=== PATIENT | female | born 1975 | race Caucasian/White ===

== ENCOUNTER 2025-04-11 11:13 | Emergency (ER) | payer OTHER, SELFPAY ==
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
--- OUTSIDE RECORDS SUMMARY | 2024-12-22 05:30 | XMS_ITS | Encounter Summary ---
Author Name [facility] Organization [facility] Address [address] [place] [address] Care Team Providers Care Histology Tech Name Role Phone CHEO CHAVIRA Primary Care [...] Marmolejo's Name Patient's Relationship to Policy Marmolejo [facility] Sep 19, 2021 [facility] [id number] [phone] LC [place] PATIENT [facility] Sep 19, 2021 [facility] [id number] LC [place] PATIENT Selected Encounter This section includes the information on record at [place] for the Encounter. Date/Time Encounter Type Encounter Description Reason Provider Source December 22, 2024 09:30 AM OFFICE O/P EST MOD 30 MIN [facility] - IND ICD-10-CM F41.1 Generalized anxiety disorder PUNEET WATSON Encounter Template Text not used by [place] Assessments - Encounter Diagnoses This section includes the primary and secondary diagnoses documented for the Encounter. Date/Time Primary/Secondary Diagnosis Diagnosis Name Provider Source December 25, 2024 08:34 AM PRIMARY Generalized anxiety disorder PUNEET WATSON [facility] December 25, 2024 08:34 AM SECONDARY Major depressive disorder, recurrent, moderate PUNEET WATSON DAYDAY December 25, 2024 08:34 AM SECONDARY Problems in relationship with spouse or partner PUNEET WATSON DAYDAY Plan of Treatment: Future Appointments (+ 6 months) and Future Tests (+/- 45 days) The Plan of Treatment section includes future care activities for the [facility] This section includes future appointments and future orders which are active, pending or scheduled. Future Appointments This section includes appointments that were scheduled to occur 6 months from the date of the Encounter, up to a maximum of 20 appointments. The data comes from all [place] treatment facilities. Appointment Date/Time Appointment Type Appointme nt Facility Name Mar 19, 2025 11:00 AM AMBULATORY - PSYCHIATRY [facility] May 02, 2025 11:00 AM AMBULATORY - PSYCHIATRY [facility] Jun 18, 2025 11:30 AM AMBULATORY - NONE [facility] Active, Pending, and Scheduled Orders This section includes a listing of several types of active, pending, and scheduled orders, including clinic medications orders, diagnostic test orders, procedure orders and consult orders; where the start date of the order is 45 days before the date of the Encounter or 45 days after the date of theEncounter. The data comes from all [facility]. Test Date/Time Test Type Test Details Facility Name Jan 11, 2025 12:00 AM Laboratory - Chemi mabely Order OCCULT BLOOD FIT X1 SCREEN VIAL (FOBT) FECES SP [facility] Lab Results: +/- 30 days of the encounter This section includes the Chemistry and Hematology Lab Results on record with [place] for the patient. Radiology Reports and Pathology Reports are provided separately, in subsequent sections. Lab Results This section contains the Chemistry/Hematology Results that were resulted 30 days before or 30 daysafter the date of the Encounter. Date/Time Source Result Type Result - Unit Interpretation Reference Range Specimen Type Comment December 15, 2024 11:32 AM [facility] VITAMIN D (TOTAL) SERUM Specimen Type: SERUM Comment: VITD One expert panel recommended a target range of 30-40 ng/mL. Ordering Provider: CHEO CHAVIRA Report Released Date/Time: Nov 16, 2024 10:28 AM Reporting Lab: [facility] [id number] ON LICENSE OF [facility] [id number] Performing Lab: [address] [address] VITAMIN D (TOTAL) 47 ng/mL 30-60 December 15, 2024 11:32 AM [facility] CORTISOL SERUM Specimen Type: SERUM Comment: VITD One expert panel recommended a target range of 30-40 ng/mL. CORTREF RANGE: AM draw (3.7-19.4 ug/dL) or PM draw (2.9-17.3 ug/dL) Ordering Provider: CHEO CHAVIRA Report Released Date/Time: Nov 16, 2024 10:28 AM Reporting Lab: [address] [phone] Performing Lab: [address] [phone] CORTISOL 6.9 ug/dL December 15, 2024 11:32 AM [facility] VITAMIN B12 PLASMA Specimen Type: PLASMA Comment: GLUCOSE The ADA recommends a fasting glucose of 99 mg/dL as the GLUCOSE upper limit of normal. TP Per package insert reference range for recumbent is 6.0 to 7.8 TP g/dL. Plasma samples will generally have higher values (about TP 0.2 to 0.4 g/dL higher) due to presence of fibrinogen. TRIG REFERENCE RANGE: BORDERLINE HIGH: 150-199 mg/dL HIGH: 200-499 TRIG mg/dL VERY HIGH: >=500 mg/dL CHOL REF RANGE: BORDERLINE HIGH: 200-239 mg/dL HIGH: >=240 mg/dL HDLC Values >60 are a negative risk factor for heart disease. DLDL REF RANGE: NEAR OR ABOVE OPTIMAL: 100-129 mg/dL BORDERLINE DLDL HIGH: 130-159 mg/dL HIGH: 160-189 mg/dL VERY HIGH: >=190 VITB12 Levels above 300 or 400 pg/mL are rarely associated with VITB12 vitamin B12 deficiency induced hematologic or neurologic VITB12 disease, respectively. Recommended usage in conjunction with VITB12 information obtained from clinical evaluation and other VITB12 testing. Ordering Provider: CHEO CHAVIRA Report Released Date/Time: Nov 16, 2024 10:28 AM Reporting Lab: [address] [phone] Performing Lab: [address] [phone] VITAMIN B12 385 pg/mL 213-816 December 15, 2024 11:32 AM [facility] TSH PLASMA Specimen Type: PLASMA Comment: GLUCOSE The ADA recommends a fasting glucose of 99 mg/dL as the GLUCOSE upper limit of normal. TP Per package insert reference range for recumbent is 6.0 to 7.8 TP g/dL. Plasma samples will generally have higher values (about TP 0.2 to 0.4 g/dL higher) due to presence of fibrinogen. TRIG REFERENCE RANGE: BORDERLINE HIGH: 150-199 mg/dL HIGH: 200-499 TRIG mg/dL VERY HIGH: >=500 mg/dL CHOL REF RANGE: BORDERLINE HIGH: 200-239 mg/dL HIGH: >=240 mg/dL HDLC Values >60 are a negative risk factor for heart disease. DLDL REF RANGE: NEAR OR ABOVE OPTIMAL: 100-129 mg/dL BORDERLINE DLDL HIGH: 130-159 mg/dL HIGH: 160-189 mg/dL VERY HIGH: >=190 VITB12 Levels above 300 or 400 pg/mL are rarely associated with VITB12 vitamin B12 deficiency induced hematologic or neurologic VITB12 disease, respectively. Recommended usage in conjunction with VITB12 information obtained from clinical evaluation and other VITB12 testing. Ordering Provider: CHEO CHAVIRA Report Released Date/Time: Nov 16, 2024 10:28 AM Reporting Lab: [address] [phone] Performing Lab: [address] [address] TSH 0.525 u[IU]/mL 0.350-4.940 December 15, 2024 11:32 AM [facility] COMPREHENSIVE METABOLIC PANEL PLASMA S pecimen Type: PLASMA No comment entered. Ordering Provider: CHEO CHAVIRA Report Released Date/Time: Nov 16, 2024 10:28 AM Reporting Lab: [address] [phone] Performing Lab: [facility] December 15, 2024 11:32 AM [facility] FREE T4 PLASMA Specimen Type: P LASMA Comment: GLUCOSE The ADA recommends a fasting glucose of 99 mg/dL as the GLUCOSE upper limit of normal. TP Per package insert reference range for recumbent is 6.0 to 7.8 TP g/dL. Plasma samples will generally have higher values (about TP 0.2 to 0.4 g/dL higher) due to presence of fibrinogen. TRIG REFERENCE RANGE: BORDERLINE HIGH: 150-199 mg/dL HIGH: 200-499 TRIG mg/dL VERY HIGH: >=500 mg/dL CHOL REF RANGE: BORDERLINE HIGH: 200-239 mg/dL HIGH: >=240 mg/dL HDLC Values >60 are a negative risk factor for heart disease. DLDL REF RANGE: NEAR OR ABOVE OPTIMAL: 100-129 mg/dL BORDERLINE DLDL HIGH: 130-159 mg/dL HIGH: 160-189 mg/dL VERY HIGH: >=190 VITB12 Levels above 300 or 400 pg/mL are rarely associated with VITB12 vitamin B12 deficiency induced hematologic or neurologic VITB12 disease, respectively. Recommended usage in conjunction with VITB12 information obtained from clinical evaluation and other VITB12 testing. Ordering Provider: CHEO CHAVIRA Report Released Date/Time: Nov 16, 2024 10:28 AM Reporting Lab: [address] [phone] Performing Lab: [address] [phone] FREE T4 0.90 ng/dL 0.70-1.48 December 15, 2024 11:32 AM [facility] LIPID PROFILE PLASMA Specimen Type: P LASOSEI Comment: GLUCOSE The ADA recommends a fasting glucose of 99 mg/dL as the GLUCOSE upper limit of normal. TP Per package insert reference range for recumbent is 6.0 to 7.8 TP g/dL. Plasma samples will generally have higher values (about TP 0.2 to 0.4 g/dL higher) due to presence of fibrinogen. TRIG REFERENCE RANGE: BORDERLINE HIGH: 150-199 mg/dL HIGH: 200-499 TRIG mg/dL VERY HIGH: >=500 mg/dL CHOL REF RANGE: BORDERLINE HIGH: 200-239 mg/dL HIGH: >=240 mg/dL HDLC Values >60 are a negative risk factor for heart disease. DLDL REF RANGE: NEAR OR ABOVE OPTIMAL: 100-129 mg/dL BORDERLINE DLDL HIGH: 130-159 mg/dL HIGH: 160-189 mg/dL VERY HIGH: >=190 Ordering Provider: CHEO CHAVIRA Report Released Date/Time: Nov 16, 2024 10:28 AM Reporting Lab: [address] [address] Performing Lab: [place] [phone] CHOLESTEROL 161 mg/dL 0-199 LDL CHOLESTEROL 125 mg/dL H 0-99 HDL CHOLESTEROL 45 mg/dL L >50 TRIGLYCERIDE 44 mg/dL 0-149 December 15, 2024 11:32 AM [facility] HEMOGLOBIN A1C BLOOD Specimen Type: B LOOD Comment: Values obtained from A1C measurements can vary. For typical A1C assays, a reported value of 7.0 could actually be between 6.72 and 7.28 if measured by a reference method. A reported value of 9.0 could actually be between 8.73 and 9.27. Ref: http://www.ngsp.org/CAPdata.asp Ordering Provider: CHEO CHAVIRA Report Released Date/Time: Nov 16, 2024 10:28 AM Reporting Lab: [place] [phone] Performing Lab: [place] [phone] HEMOGLOBIN A1C 5.3 3.6-5.7 December 15, 2024 11:32 AM [facility] T3 TOTAL SERUM Specimen Type: SERUM No comment entered. Ordering Provider: CHEO CHAVIRA Report Released Date/Time: Nov 16, 2024 10:28 AM Reporting Lab: [place] [phone] Performing Lab: [place] [phone] T3 TOTAL 84.8 ng/dL 35.0-193.0 December 15, 2024 11:32 AM [facility] CBC BLOOD Specimen Type: B LOOD Comment: Values obtained from A1C measurements can vary. For typical A1C assays, a reported value of 7.0 could actually be between 6.72 and 7.28 if measured by a reference method. A reported value of 9.0 could actually be between 8.73 and 9.27. Ref: http://www.ngsp.org/CAPdata.asp Scan agrees with automated differential Slide reviewed for eosinophilia Ordering Provider: CHEO CHAVIRA Report Released Date/Time: Nov 16, 2024 10:28 AM Reporting Lab: [address] [phone] Performing Lab: [place] [phone] WBC COUNT 11.5 10*3/uL H 3.6-11.0 RBC COUNT 4.18 10*6/uL L 4.20-5.40 HGB 12.9 g/dL L 13.0-16.0 HCT 38.2 37.0-47.0 MCV 91.4 fL 80.0-96.0 MCH 30.8 pg 27.0-31.0 MCHC 33.7 g/dL 31.5-36.5 PLT 305 10*3/uL 150-400 NUCLEATED RBC/100WBC 0.0 /100{WBCs} RDW 14.2 11.2-15.8 MPV 9.0 fL 7.9-10.8 LYMPHS % 31.0 21.0-51.0 MONOCYTES % 7.6 4.0-8.0 NEUTROPHIL % 39.9 L 54.0-78.0 EOSINOPHIL % 20.7 H 0.0-3.0 BASOPHIL % 0.8 0.0-3.0 ABSOLUTE LYMPHOCYTE COUNT 3.6 10*3/uL 0. 8-5.0 ABSOLUTE NEUTROPHIL COUNT 4.6 10*3/uL 1. 9-8.6 ABSOLUTE BASOPHIL COUNT 0.1 10*3/uL 0.0- 0.3 ABSOLUTE MONOCYTE COUNT 0.9 10*3/uL 0.1- 0.9 ABSOLUTE EOSINOPHIL COUNT 2.4 10*3/uL H 0. 0-0.3 MANUAL SLIDE REVIEW Performed-See comments December 15, 2024 11:32 AM [facility] ANTI-THYROID PEROXIDASE SERUM Specime n Type: SERUM Comment: VITD One expert panel recommended a target range of 30-40 ng/mL. CORTREF RANGE: AM draw (3.7-19.4 ug/dL) or PM draw (2.9-17.3 ug/dL) Ordering Provider: CHEO CHAVIRA Report Released Date/Time: Nov 16, 2024 10:28 AM Reporting Lab: [address] [phone] Performing Lab: [address] [phone] ANTI-THYROID PEROXIDASE <3.0 [IU]/mL 0.0 -5.6 December 15, 2024 11:32 AM [facility] URINALYSIS URINE Specimen Type: URINE No comment entered. Ordering Provider: CHEO CHAVIRA Report Released Date/Time: Nov 16, 2024 10:28 AM Reporting Lab: [address] [phone] Performing Lab: [address] [phone] SPECIFIC GRAVITY 1.022 1.016-1.022 URINE PROTEIN Negative mg/dL URINE PH 5.5 5.0-8.0 WBC/HPF 1 /[HPF] <=4 ANGELI OXALATE CRYSTALS Present H Negative RBC/HPF 1 /[HPF] <=4 SQUAMOUS EPITHELIAL 3 /[HPF] <=4 NITRITE, URINE Negative Negative URINE MUCUS Present H Negative URINE BLOOD Negative mg/dL <0.05 URINE COLOR Light-Yellow URINE GLUCOSE Negative mg/dL URINE BACTERIA Rare Negative ESTERASE(WBC) Negative URINE CLARITY Clear Clear URINE BILIRUBIN Negative mg/dL UROBILINOGEN Negative mg/dL URINE KETONES Negative mg/dL December 15, 2024 11:32 AM [facility] FOLATE SERUM Specimen Type: SERUM No comment entered. Ordering Provider: CHEO CHAVIRA Report Released Date/Time: Nov 16, 2024 10:28 AM Reporting Lab: [address] [phone] Performing Lab: [address] [phone] FOLATE 14.1 ng/mL 7.0-31.4 Social History: Smoking Status (Most current) and Tobacco Use (All prior to encounter date) This section includes the most current, and the historical, smoking and tobacco- related health factors from the [place] facility where the Encounter took place. Current Smoking Status This section includes the most current smoking, or tobacco-related health factor, from the [place] facility where the Encounter took place. Date/Time Current Smoking Status Comment Lulu mejias December 22, 2024 09:30 AM VA-TOBACCO USE EVERY DAY CIGARET [facility] Tobacco Use History This section includes a history of the smoking, or tobacco-related health factors, that were collected on or before the date of the Encounter. The data comes from the [place] facility where the Encounter took place. 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 NO [facility] Aug 06, 2023 02:00 PM VA-TOBACCO USE MED NO [facility] Aug 06, 2023 02:00 PM VA-TOBACCO USER SOME DAYS [facility] Aug 20, 2022 02:00 PM VA-TOBACCO DOESNT USE WI 30 MIN WAKEUP [facility] Aug 20, 2022 02:00 PM VA-TOBACCO USE 30 YEARS OR MORE [facility] Aug 20, 2022 02:00 PM VA-TOBACCO USE ADVICE [facility] Aug 20, 2022 02:00 PM VA-TOBACCO USE MIXER BLENDER NO [facility] Aug 20, 2022 02:00 PM VA-TOBACCO USE MED NO [facility] Aug 20, 2022 02:00 PM VA-TOBACCO USER EVERY DAY [facility] Encounter Notes: All associated encounter notes This section contains the clinical notes associated to the Encounter. Date/Time Encounter Note(s) Provider Source December 22, 2024 09:31 AM PSYCHIATRY NOTE: LOCAL TITLE: [facility] PSYCHIATRY NOTE (T) STANDARD TITLE: PSYCHIATRY NOTE DATE OF NOTE: DECEMBER 22, 2024@09:31 ENTRY DATE: DECEMBER 22, 2024@09:31:27 AUTHOR: PUNEET WATSON COSIGNER: URGENCY: STATUS: COMPLETED PSYCHIATRIC PROGRESS NOTE Time in: 0930 am Time out: 1000 am Total time: 30 minutes Therapy time: 16 minutes Date Treatment Plan is due: December Treatment Plan Goal: lower depression and anxiety CC: medication follow up HPI: Patient is a of on . Patients has bladder cancer and this is stressful . She reports they can't afford for him to be off of work because they will lose their home. 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 She reports her anxiety has been through roof along with depression . She states I get brain zaps and headaches at work. She reports she hasn't missed any doses of her Duloxetine which can cause brain zaps if not taken correctly . She reports and gets defensive regarding selling her home which is a 500,000 dollar home. 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 Sleep most nights probably 6 hours trees to get 7 to 8 hours. She reports her doesn't like her sleeping. 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 She continues to be afraid of him when he gets mad. She reports it took everything in her to come here today. She reports somedays will pretend she is going to work but will go to park . 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 SUBSTANCE USE HX: Nicotine : smoking 6 daily Alcohol : social Cannabis : gummies ALLERGIES: ALLERGIES/ADVERSE REACTIONS No Known Allergies Active Outpatient Medications (including Supplies): Active Outpatient Medications Status ===== 1) BUPROPION HCL 150MG 24HR SA TAB TAKE ONE TABLET BY ACTIVE MOUTH EVERY MORNING 2) DULOXETINE HCL 30MG EC CAP TAKE THREE CAPSULES BY ACTIVE MOUTH EVERY DAY FOR MAJOR DEPRESSIVE DISORDER 3) LAMOTRIGINE 100MG TAB TAKE ONE TABLET BY MOUTH EVERY ACTIVE DAY Active Non-VA Medications Status ===== 1) Non-VA DIPHENHYDRAMINE HCL 25MG CAP 25MG MOUTH TWICE ACTIVE A DAY NEEDED 2) Non-VA IBUPROFEN 800MG TAB 800MG MOUTH THREE TIMES A ACTIVE DAY NEEDED 3) Non-VA LAMOTRIGINE (LAMICTAL) 100MG TAB 100MG MOUTH ACTIVE EVERY DAY 4) Non-VA VITAMIN B COMPLEX CAP 1 CAPSULE MOUTH EVERY ACTIVE DAY 5) Non-VA VITAMIN B COMPLEX WITH C 1 CAP/TAB MOUTH EVERY ACTIVE DAY 8 Total Medications LABS: [facility] - Chem & Hematology (max 6 months) ---- Collection DT Specimen Test Name Result Units Ref Range 12/15/2024 11:32 URINE URINE PH 5.5 5.0 - 8.0 URINE COLOR Light-Yellow Ref: [none] URINE CLARITY Clear Ref: Clear SPECIFIC GRAVITY 1.022 1.016 - 1.022 URINE PROTEIN Negative mg/dL Negative - 29 URINE GLUCOSE Negative mg/dL Negative - 69 URINE KETONES Negative mg/dL <=9 - 9 URINE BILIRUBIN Negative mg/dL <=0.4 - 0.4 UROBILINOGEN Negative mg/dL <=1 - 1 URINE BLOOD Negative mg/dL Ref: <= 0.05 ESTERASE(WBC) Negative Isabella/uL Negative - 74 NITRITE, URINE Negative Ref: Negative RBC/HPF 1 /HPF Ref: <=4 WBC/HPF 1 /HPF Ref: <=4 SQ.EPTH 3 /HPF Ref: <=4 URINE BACTERIA Rare graded/HPFRef: Negative URINE MUCUS Present H Ref: Negative CA++ OX Present H Ref: Negative 12/15/2024 11:27 BLOOD HEMOGLOBIN A1C 5.3 % 3.6 - 5.7 WBC COUNT 11.5 H K/cmm 3.6 - 11.0 RBC COUNT 4.18 L M/cmm 4.20 - 5.40 HGB 12.9 L g/dL 13.0 - 16.0 HCT 38.2 % 37.0 - 47.0 MCV 91.4 fL 80.0 - 96.0 MCH 30.8 pg 27.0 - 31.0 MCHC 33.7 g/dL 31.5 - 36.5 RDW 14.2 % 11.2 - 15.8 PLT 305 K/cmm 150 - 400 MPV 9.0 fL 7.9 - 10.8 NEUTROPHIL % 39.9 L % 54.0 - 78.0 LYMPHS % 31.0 % 21.0 - 51.0 MONOCYTES % 7.6 % 4.0 - 8.0 EOSINOPHIL % 20.7 H % 0.0 - 3.0 BASOPHIL % 0.8 % 0.0 - 3.0 NEUTRO# 4.6 K/cmm 1.9 - 8.6 LY # 3.6 K/cmm 0.8 - 5.0 MONO # 0.9 K/cmm 0.1 - 0.9 EOSINO# 2.4 H K/cmm 0.0 - 0.3 BASO # 0.1 K/cmm 0.0 - 0.3 NRBC 0.0 /100 WBC None Established - None Established Slide Review (manPerformed-See comments Comment: Values obtained from A1C measurements can vary. For typical A1C Comment: assays, a reported value of 7.0 could actually be between 6.72 and Comment: 7.28 if measured by a reference method. A reported value of 9.0 Comment: could actually be between 8.73 and 9.27. Ref: Comment: http://www.ngsp.org/CAPdata.asp Comment: Scan agrees with automated differential Comment: Slide reviewed for eosinophilia 12/15/2024 11:27 PLASMA GLUCOSE 82 mg/dL 74 - 99 SODIUM 142 mmol/L 134 - 144 POTASSIUM 3.8 mmol/L 3.5 - 5.1 CHLORIDE 110 mmol/L 99 - 112 CO2 21 L mmol/L 22 - 30 BUN 12.6 mg/dL 9.8 - 20.1 CREATININE 0.7 mg/dL 0.6 - 1.1 CALCIUM 9.0 mg/dL 8.6 - 10.3 EGFR (CALCULATED) 105 mL/min/1.73m2 BSA ANION GAP 15 mmol/L 10 - 20 AST/SGOT 23 U/L 10 - 40 ALT/SGPT 18 U/L 0 - 55 ALKPHOS 70 U/L 40 - 150 BILIRUBIN, TOTAL 0.4 mg/dL 0.2 - 1.2 PROTEIN, TOTAL 7.0 g/dL 6.4 - 8.3 ALBUMIN 4.1 g/dL 3.5 - 4.8 CHOLESTEROL 161 mg/dL 0 - 199 LDL CHOLESTEROL 125 H mg/dL 0 - 99 HDL CHOLESTEROL 45 L mg/dL Ref: >= 50 TRIGLYCERIDE 44 mg/dL 0 - 149 VITAMIN B12 385 pg/mL 213 - 816 FREE T4 0.90 ng/dL 0.70 - 1.48 TSH 0.525 uIU/mL 0.350 - 4.940 Comment: GLUCOSE The ADA recommends a fasting glucose of 99 mg/dL as the Comment: GLUCOSE upper limit of normal. Comment: TP Per package insert reference range for recumbent is 6.0 to 7.8 Comment: TP g/dL. Plasma samples will generally have higher values (about Comment: TP 0.2 to 0.4 g/dL higher) due to presence of fibrinogen. Comment: TRIG REFERENCE RANGE: BORDERLINE HIGH: 150-199 mg/dL HIGH: 200-499 Comment: TRIG mg/dL VERY HIGH: >=500 mg/dL Comment: CHOL REF RANGE: BORDERLINE HIGH: 200-239 mg/dL HIGH: >=240 mg/dL Comment: HDLC Values >60 are a negative risk factor for heart disease. Comment: DLDL REF RANGE: NEAR OR ABOVE OPTIMAL: 100-129 mg/dL BORDERLINE Comment: DLDL HIGH: 130-159 mg/dL HIGH: 160-189 mg/dL VERY HIGH: >=190 Comment: VITB12 Levels above 300 or 400 pg/mL are rarely associated with Comment: VITB12 vitamin B12 deficiency induced hematologic or neurologic Comment: VITB12 disease, respectively. Recommended usage in conjunction with Comment: VITB12 information obtained from clinical evaluation and other Comment: VITB12 testing. 12/15/2024 11:27 SERUM FOLATE 14.1 ng/mL 7.0 - 31.4 12/15/2024 11:27 SERUM T3 TOTAL 84.8 ng/dL 35.0 - 193.0 VITAMIN D (TOTAL) 47 ng/mL 30 - 60 THYROID PEROX <3.0 IU/mL 0.0 - 5.6 CORTISOL 6.9 ug/dL Comment: VITD One expert panel recommended a target range of 30-40 ng/mL. Comment: CORTREF RANGE: AM draw (3.7-19.4 ug/dL) or PM draw (2.9-17.3 ug/dL) CY - Cytopathology (max 6 months) No data available EM - Electron Microscopy (max 6 months) ------ No data available HANNA[facility] - Microbiology (max 6 months) No data available SP - Surgical Pathology (max 6 months) ----- No data available REVIEW OF SYSTEMS: Muscle strength and Tone: : denies Gait and Station: : denies falls PHYSICAL EXAM: Vitals: Measurement DT TEMP PULSE RESP BP HEIGHT F(C) IN(CM) 12/22/2024 09:09 T: 96.4 F [35.8 C] (12/22/2024 08:58) P: 101 (12/22/2024 08:58) R: 16 (12/22/2024 08:58) BP: 135/85 (12/22/2024 08:58) W: 154 lb. [69.85 kg] (12/22/2024 08:58) BMI: 24.2 Measurement DT WEIGHT PAIN LB(KG)[BMI] 12/22/2024 09:09 5 MENTAL STATUS EXAMINATION: Level of Consciousness: Alert and Oriented to 4 Behavior: Cooperative - Eye Contact: Good Grooming & Hygiene: Good - Dress: Kempt Psychomotor Activity: Restless Speech: Normal rate, volume and prosody Cognition: Grossly intact Thought Process: Coherent and goal directed Thought Content: Delusions: Absent Hallucinations: Absent Suicidal Ideation: Denied. - Intent to : Absent Homicidal Ideation: Denied Mood: Moderately anxious Affect: Blunted Insight: Good - Judgment: Good SELF-MEDICATION ASSESSMENT: Current medication regime reviewed with Client. Client/caregiver was able to verbalize names of medications, dosage, indications, common side effects and proper administration. Client/caregiver knowledgeable regarding obtaining refills, security and proper storage. Client/caregiver assessed to be appropriate to self-medicate. Patient was educated on condition, diagnosis, treatment plan, options for treatment, side effects, tardive dyskinesia, metabolic effects, addictive potential, risk/benefit ratio and use off-label medications. RISK ASSESSMENT Does patient have firearms at home? Yes Patient assessed for other lethal means? Yes Suicidal risk assessment completed: Yes Prior suicide attempts: thoughts in passes The risk for harming self is considered: Acute - Low Chronic - Low Risk factors: Access to lethal means Financial problems Legal problems Medical conditions and health-related problems Psychological conditions Protective factors: Supportive and caring family and friends Connectedness to community, school, family, friends [place] skills (such as problem-solving, conflict resolution, anger management, impulse control, etc.) Access to appropriate medical and mental health care Access to immediate and ongoing support and care Violence assessment completed: Yes Prior history of violence: No The risk of violence towards others is considered: Low PSYCHOTHERAPY NOTE Therapy provided: supportive Issues discussed: father passing, husbands anger Goals of therapy: active listening support Treatment plan: continue plan of care MEDICATION MANAGEMENT TREATMENT PLAN DIAGNOSIS: depression , anxiety GOALS OF THERAPY: lower depression and anxiety METHOD OF THERAPY/INTERVENTIONS: Will continue to assess adherence and efficacy of medications Will continue to monitor symptoms and reassess at the next apt PROGRESS TOWARDS GOAL: Patient is compliant with medication - patient reports symptoms continue to be adequately controlled TREATMENT PLAN UPDATED: Date: December Treatment Plan has been discussed with patient/caregiver. IMPRESSION/FORMULATION: continues with depression , anxiety . Her father recently . diagnosed with cancer and declined treatment due to financially they can't afford him to not work. [place] is 100% [place] but has to work due to they are not making making and could lose everything. She denies suicidal and homicidal thoughts or plans . DIAGNOSIS/PLAN: 1. Duloxetine 90 mg started by neuro for pain management will monitor liver enzymes 2. Continue psychotherapy 3. Wellbutrin 100 mg BID Does patient have a diagnosis or history of opioid use disorder or stimulant use disorder? No RTC: 2 months Patient was provided with the [facility] Crisis Line - Dial [phone], press #1 . Instructed to call 911 or to go to the nearest ER if suicidal ideation occurs. Call clinic with any questions, concerns or in crisis. Follow up with PCP for medical issues. Medication education and counseling for new medications added today was provided to the patient/caregiver based on the individual's needs. This included why the medication was prescribed, how it should be taken and for how long, what to expect from it and what happens if not taken as prescribed. The patient/caregiver was also informed about risks and potential adverse effects of this medication and agreed to medication trial. I certify that the patient/caregiver understood my education and instructions. MEDICATION RECONCILIATION MEDICATION RECONCILIATION REPORT reviewed and discussed with patient. [place] prescription medications: Patient verifies that they are in receipt of a complete and accurate list of medications. Prescription medications from another source: Patient verifies that they are in receipt of a complete and accurate list of medications. Over the counter medications, vitamins, herbals, and nutritional supplements: Patient verifies that they are in receipt of a complete and accurate list of medications. Reviewed current medications with the patient and gave them an updated list. /bridgett/ PUNEET WATSON CLINICAL NURSE SPECIALIST Signed: 12/25/2024 08:35 PUNEET WATSON CBSWETHA December 22, 2024 09:07 AM PRIMARY CARE NURSI JOJO NOTE: LOCAL TITLE: OUTPATIENT NURSING INTAKE NOTE (T) STANDARD TITLE: PRIMARY CARE NURSING NOTE DATE OF NOTE: DECEMBER 22, 2024@09:07 ENTRY DATE: DECEMBER 22, 2024@09:07:16 AUTHOR: CARLOS MOY COSIGNER: URGENCY: STATUS: COMPLETED OUTPATIENT NURSING INTAKE NOTE (T) Has ADDENDA Hemoglobin A1C Results: Collection DT Specimen Test Name Result Units Ref Range 12/15/2024 11:27 BLOOD HEMOGLOBIN A1C 5.3 % 3.6 - 5.7 Comment: Values obtained from A1C measurements can vary. For typical A1C Comment: assays, a reported value of 7.0 could actually be between 6.72 and Comment: 7.28 if measured by a reference method. A reported value of 9.0 Comment: could actually be between 8.73 and 9.27. Ref: Comment: http://[email or web address] Comment: Scan agrees with automated differential Comment: Slide reviewed for eosinophilia Review Allergies Allergies reviewed and updated per protocol. ALLERGIES/ADVERSE REACTIONS No Known Allergies Have you fallen in the last 30 days? NO MEDICATION LIST REVIEW REPORT Patient states no change in documented OTC/Herbals at this visit. 1. Has the patient been feeling sad or distressed? Yes. Name of PCP notified for follow-up/disposition: Puneet Watson 2. Has the patient been having personal or family problems? Yes. Name of PCP notified for follow-up/disposition: Puneet Watson 3. Has the patient been experiencing worry and/or stress? Yes. Name of PCP notified for follow-up/disposition: Puneet Watson 4. Has the patient been having problems with drugs and/or alcohol? No 5. [place] Crisis Line pocket card was provided to patient. No/patient declined [facility] not documented this visit. Clinical Reminders Activity Advance Directive Education Screen: Patient received information regarding Advance Directives: Yes - Patient has been given information/education regarding Advance Directives. Patient advised to follow up with Social Work Service. Alcohol Use Screen (AUDIT-C): Alcohol Screen: SCREEN FOR ALCOHOL (AUDIT-C) An alcohol screening test (AUDIT-C) was negative (score=1). 1. How often did you have a drink containing alcohol in the past year? Consider a drink to be a 12 ounce can or bottle of regular beer, 8 ounces of malt liquor, a 5 ounce glass of table wine, or a 1.5 ounce shot of liquor (like scotch, gin, or vodka). Monthly or less 2. How many drinks containing alcohol did you have on a typical day when you were drinking in the past year? One or two drinks 3. How often did you have 4 or more drinks on one occasion in the past year? Never COVID-19 Immunization: Homelessness/Food Insecurity Screen: In the past 2 months, have you been living in stable housing that you own, rent, or stay in as part of a household? Yes - Living in stable housing. Are you worried or concerned that in the next 2 months you may NOT have stable housing that you own, rent, or stay in as part of a household? Yes - Worried about housing near future Where have you lived for MOST of the past 2 months? Apartment/House/Room - no government subsidy Would you like to be REFERRED to talk more about your housing situation? declines referral to Social Work at this time - Given information for future reference. What's the best way to reach you? How to reach: phone The [place] reports the following: Within the past 12 months, you worried whether your food would run out before you got money to buy more. Never true Within the past 12 months, the food you bought just didn't last and you didn't have money to get more. Never true Pain, Brief Evaluation: Type of pain: Ongoing Location: Low Back Intensity: Currently: 5 Patient Education Documentation: LEARNING NEEDS ASSESSMENT: The patient/family/significant other reports no changes in learning needs. Suicide Screen: C-SSRS Screening [place] Suicide Severity Rating Scale (C-SSRS) screener 1. Over the past month, have you wished you were or wished you could go to sleep and not wake up? No 2. Over the past month, have you had any actual thoughts of killing yourself? No 3. Over the past month, have you been thinking about how you might do this? Response not required due to responses to other questions. 4. Over the past month, have you had these thoughts and had some intention of acting on them? Response not required due to responses to other questions. 5. Over the past month, have you started to work out or worked out the details of how to kill yourself? Response not required due to responses to other questions. 6. If yes, at any time in the past month did you intend to carry out this plan? Response not required due to responses to other questions. 7. In your lifetime, have you ever done anything, started to do anything, or prepared to do anything to end your life (for example, collected pills, obtained a gun, gave away valuables, went to the roof but didn't jump)? No 8. If YES, was this within the past 3 months? Response not required due to responses to other questions. /bridgett/ CARLOS MOY LICENSED PRACTICAL NURSE Signed: 12/22/2024 09:10 12/22/2024 ADDENDUM STATUS: COMPLETED Clinical Reminders Activity Tobacco Use Screening: The patient smokes cigarettes every day. The patient has never used other types of tobacco. /bridgett/ CARLOS MOY LICENSED PRACTICAL NURSE Signed: 12/22/2024 09:11 CARLOS MOY [facility]
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
--- OUTSIDE RECORDS SUMMARY | 2025-02-16 11:50 | XMS_ITS ---
Author Name [facility] [place] Organization [facility] [place] Address [address] [place] [address] Care Team Providers Care Arcade Technician Name Role Phone CHEO CHAVIRA Primary Care [...] Marmolejo's Name Patient's Relationship to Policy Marmolejo [facility] Sep 19, 2021 [facility] [id number] [phone] LC [place] PATIENT [facility] Sep 19, 2021 [facility] [id number] LC [place] PATIENT Selected Encounter This section includes the information on record at [place] for the Encounter. Date/Time Encounter Type Encounter Description Reason Provider Source Feb 16, 2025 03:50 PM [facility] DIG ASSMT&MGMT 5-10 CLINICAL PHARMACY ICD-10-CM L20.9 Atopic dermatitis, unspecified JANAE URRUTIA Encounter Template Text not used by [place] Assessments - Encounter Diagnoses This section includes the primary and secondary diagnoses documented for the Encounter. Date/Time Primary/Secondary Diagnosis Diagnosis Name Provider Source Feb 16, 2025 04:00 PM PRIMARY Atopic dermatitis, unspecified JANAE URRUTIA [facility] Plan of Treatment: Future Appointments (+ 6 months) and Future Tests (+/- 45 days) The Plan of Treatment section includes future care activities for the patient from all [place] [facility] This section includes future appointments and future orders which are active, pending or scheduled. Future Appointments This section includes appointments that were scheduled to occur 6 months from the date of the Encounter, up to a maximum of 20 appointments. The data comes from all [facility]. Appointment Date/Time Appointment Type Appointme nt Facility Name Mar 19, 2025 11:00 AM AMBULATORY - PS[facility]CHIATRY [facility] May 02, 2025 11:00 AM AMBULATORY - PSYCHIATRY [facility] Jun 18, 2025 11:30 AM AMBULATORY - NONE [facility] Jun 25, 2025 10:30 AM AMBULATORY - NONE [facility] Jul 18, 2025 08:30 AM AMBULATORY NONE [facility] Active, Pending, and Scheduled Orders This section includes a listing of several types of active, pending, and scheduled orders, including clinic medications orders, diagnostic test orders, procedure orders and consult orders; where the start date of the order is 45 days before the date of the Encounter or 45 days after the date of theEncounter. The data comes from all [facility]. Test Date/Time Test Type Test Details Facility Name Jan 11, 2025 12:00 AM Laboratory - Chemi stry Order OCCULT BLOOD FIT X1 SCREEN VIAL (FOBT) FECES SP [facility] Mar 20, 2025 10:42 AM Consult Order MH BHIP WI THIN TEAM S [id number] OUTPT Cons [facility] [employer] [facility] Mar 20, 2025 10:43 AM Consult Order W OCCUPATI ONAL THERAPY MENTAL HEALTH OUTPT Cons [employer] [facility] Encounter Notes: All associated encounter notes This section contains the clinical notes associated to the Encounter. Date/Time Encounter Note(s) Provider Source Feb 22, 2025 02:28 PM ADDENDUM: LOCAL TITLE: Addendum STANDARD TITLE: ADDENDUM DATE OF NOTE: FEB 22, 2025@14:28:36 ENTRY DATE: FEB 22, 2025@14:28:37 AUTHOR: JANAE URRUTIA EXP COSIGNER: URGENCY: STATUS: COMPLETED Thanks for the clarification on indication. Please review and alert reviewer if pt. meets criteria below and supply with past use of meds to support request. If pt. has only trialed topical steroids, would need to trial calcineurin inhibitor as well unless not medically advisable. Criteria for use for roflumilast cream or foam includes a trial of 2+ med classes each for at least 1 month. It is noted pt. has used topical steroid but no additional information available. Please review dermatology notes and enter updated consult with more information if pt. does indeed meet this criteria. (For atopic dermaitits the 2 drug classes to consider are topical corticosteroids and topical calcineurin inhibitors. /es/ JANAE URRUTIA CLINICAL MEDICAID PLAN COMPLIANCE DIRECTOR Signed: 02/22/2025 14:30 Receipt Acknowledged By: 03/02/2025 08:44 /es/ CHEO CHAVIRA NURSE PRACTITIONER --- Original Document --- 02/16/25 PRIOR AUTHORIZATION DRUG REQUEST CONSULT NOTE (C): 5. Denied, additional info requested The medical record has been reviewed with regard to this prior authorization drug request. Medication requested: Roflumilast 0.15% cream Medication indication: Psoriasis Medical history relevant to this request: Pt. is a 49 yo following with local net mvc developer who prescribed roflumilast cream 0.15% to hands. Pt. is not eligible for this med via local net mvc developer so PCP is requesting it. This med is available in 2 strengths, 0.15% and 0.3%. The 0.15% is for atopic dermatitis and the 0.3% is for psoriasis and seborrheic dermatitis. This consult indicates it is for psoriais. Would ask that this be clarified. But for either strength and indication, pt. doesn't meet criteria with the information provided. Criteria for use for roflumilast cream or foam includes a trial of 2+ med classes each for at least 1 month. It is noted pt. has used topical steroid but no additional information available. Please review dermatology notes and enter updated consult with more information if pt. does indeed meet this criteria. (For atopic dermaitits the 2 drug classes to consider are topical corticosteroids and topical calcineurin inhibitors. The request does not meet criteria - Compelling evidence for the requested indication is lacking Time spent on encounter = 5 minutes /bridgett/ JANAE URRUTIA CLINICAL MEDICAID PLAN COMPLIANCE DIRECTOR Signed: 02/16/2025 16:00 02/22/2025 ADDENDUM STATUS: COMPLETED Clinical notes received, Zoryve is for dyshidrotic eczema of right hand /es/ CHEO CHAVIRA NURSE PRACTITIONER Signed: 02/22/2025 11:10 Receipt Acknowledged By: 02/22/2025 14:28 /bridgett/ JANAE URRUTIA CLINICAL MEDICAID PLAN COMPLIANCE DIRECTOR JANAE URRUTIA [facility] Feb 22, 2025 11:09 AM ADDENDUM: LOCAL TITLE: Addendum STANDARD TITLE: ADDENDUM DATE OF NOTE: FEB 22, 2025@11:09:10 ENTRY DATE: FEB 22, 2025@11:09:11 AUTHOR: CHEO CHAVIRA EXP COSIGNER: URGENCY: STATUS: COMPLETED Clinical notes received, Zoryve is for dyshidrotic eczema of right hand /es/ CHEO CHAVIRA NURSE PRACTITIONER Signed: 02/22/2025 11:10 Receipt Acknowledged By: 02/22/2025 14:28 /bridgett/ JANAE URRUTIA CLINICAL MEDICAID PLAN COMPLIANCE DIRECTOR --- Original Document --- 02/16/25 PRIOR AUTHORIZATION DRUG REQUEST CONSULT NOTE (C): 5. Denied, additional info requested The medical record has been reviewed with regard to this prior authorization drug request. Medication requested: Roflumilast 0.15% cream Medication indication: Psoriasis Medical history relevant to this request: Pt. is a 49 yo following with local net mvc developer who prescribed roflumilast cream 0.15% to hands. Pt. is not eligible for this med via local net mvc developer so PCP is requesting it. This med is available in 2 strengths, 0.15% and 0.3%. The 0.15% is for atopic dermatitis and the 0.3% is for psoriasis and seborrheic dermatitis. This consult indicates it is for psoriais. Would ask that this be clarified. But for either strength and indication, pt. doesn't meet criteria with the information provided. Criteria for use for roflumilast cream or foam includes a trial of 2+ med classes each for at least 1 month. It is noted pt. has used topical steroid but no additional information available. Please review dermatology notes and enter updated consult with more information if pt. does indeed meet this criteria. (For atopic dermaitits the 2 drug classes to consider are topical corticosteroids and topical calcineurin inhibitors. The request does not meet criteria - Compelling evidence for the requested indication is lacking Time spent on encounter = 5 minutes /bridgett/ JANAE URRUTIA CLINICAL MEDICAID PLAN COMPLIANCE DIRECTOR Signed: 02/16/2025 16:00 CHEO CHAVIRA [facility] Feb 16, 2025 03:50 PM PHARMACY CONSULT: LOCAL TITLE: PRIOR AUTHORIZATION DRUG REQUEST CONSULT NOTE (C) STANDARD TITLE: PHARMACY CONSULT DATE OF NOTE: FEB 16, 2025@15:50 ENTRY DATE: FEB 16, 2025@15:50:28 AUTHOR: JANAE URRUTIA EXP COSIGNER: URGENCY: STATUS: COMPLETED PRIOR AUTHORIZATION DRUG REQUEST CONSULT NOTE (C) Has ADDENDA 5. Denied, additional info requested The medical record has been reviewed with regard to this prior authorization drug request. Medication requested: Roflumilast 0.15% cream Medication indication: Psoriasis Medical history relevant to this request: Pt. is a 49 yo following with local net mvc developer who prescribed roflumilast cream 0.15% to hands. Pt. is not eligible for this med via local net mvc developer so PCP is requesting it. This med is available in 2 strengths, 0.15% and 0.3%. The 0.15% is for atopic dermatitis and the 0.3% is for psoriasis and seborrheic dermatitis. This consult indicates it is for psoriais. Would ask that this be clarified. But for either strength and indication, pt. doesn't meet criteria with the information provided. Criteria for use for roflumilast cream or foam includes a trial of 2+ med classes each for at least 1 month. It is noted pt. has used topical steroid but no additional information available. Please review dermatology notes and enter updated consult with more information if pt. does indeed meet this criteria. (For atopic dermaitits the 2 drug classes to consider are topical corticosteroids and topical calcineurin inhibitors. The request does not meet criteria - Compelling evidence for the requested indication is lacking Time spent on encounter = 5 minutes /linda URRUTIA CLINICAL MEDICAID PLAN COMPLIANCE DIRECTOR Signed: 02/16/2025 16:00 02/22/2025 ADDENDUM STATUS: COMPLETED Clinical notes received, Zoryve is for dyshidrotic eczema of right hand /bridgett/ CHEO CHAVIRA NURSE PRACTITIONER Signed: 02/22/2025 11:10 Receipt Acknowledged By: 02/22/2025 14:28 /bridgett/ JANAE URRUTIA CLINICAL MEDICAID PLAN COMPLIANCE DIRECTOR 02/22/2025 ADDENDUM STATUS: COMPLETED Thanks for the clarification on indication. Please review and alert reviewer if pt. meets criteria below and supply with past use of meds to support request. If pt. has only trialed topical steroids, would need to trial calcineurin inhibitor as well unless not medically advisable. Criteria for use for roflumilast cream or foam includes a trial of 2+ med classes each for at least 1 month. It is noted pt. has used topical steroid but no additional information available. Please review dermatology notes and enter updated consult with more information if pt. does indeed meet this criteria. (For atopic dermaitits the 2 drug classes to consider are topical corticosteroids and topical calcineurin inhibitors. /bridgett/ JANAE URRUTIA CLINICAL MEDICAID PLAN COMPLIANCE DIRECTOR Signed: 02/22/2025 14:30 Receipt Acknowledged By: * AWAITING SIGNATURE * CHEO CHAVIRA KERI M [facility]
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
[2025-04-11 11:42] VITALS: BP 151/80; PULSE 96; TEMP 36.9; O2SAT 100; BMI 25.1
--- OUTSIDE RECORDS SUMMARY | 2025-04-11 11:50 | XMS_ITS | Encounter Summary ---
Author Organization [facility] Address [address] [place] [address] Phone Care Team Providers Care Chair Spring Assembler Name Role Phone Marisa Moser APRN-FLOOR TRADER Primary Care Provider Tuan Vallejo DO Primary Care Provider [phone] Encounter Details Date Type Department Care Team (Late st Contact Info) Description 02/26/2022 Orders Only [facility] [address] [place] [address] Conversion, Onbase Social History Tobacco Use Types Packs/Day Years Used Date Smoking Tobacco: Never Assessed Comments Unknown Sex and Gender Information Value Date Recorded Sex Assigned at Not on file Legal Sex Female 2:21 AM EST Gender Identity Not on file Sexual Orientation Not on file documented as of this encounter Plan of Treatment Scheduled Orders Name Type Priority Associated Diagnoses Orde r Schedule OUTSIDE LAB SCAN Lab Ordered: 02/26/2022 documented as of this encounter Visit Diagnoses Not on filedocumented in this encounter Care Teams Chair Spring Assembler Relationship Specialty Start Date End Date Marisa Moser APRN-CNP [address] [place] [id number] PCP - General 08/09/19 08/20/22 Tuan Vallejo DO [address] [place] [address] PCP - General 08/21/22 documented as of this encounter
--- OUTSIDE RECORDS SUMMARY | 2025-04-11 11:50 | XMS_ITS | Clinical Summary ---
Author Organization [facility] Address [address] [place] [address] Care Team Providers Care Fiction Writer Name Role Phone Unavailable Primary Care Provider Unavailabl e Social History Tobacco Use Types Packs/Day Years Used Date Smoking Tobacco: Never Assessed Comments Unknown Sex and Gender Information Value Date Recorded Sex Assigned at Not on file Legal Sex Female 10:12 PM EDT Gender Identity Not on file Sexual Orientation Not on file Plan of Treatment Not on file Insurance [facility]
--- OUTSIDE RECORDS SUMMARY | 2025-04-11 11:50 | XMS_ITS | Clinical Summary ---
Author Organization [facility] Address [address] [place], [place] [address] Care Team Providers Care Industrial Sales Engineer Name Role Phone Scott Mauricio Primary Care Provider [phone] Orlin Pimentel DO Unavailable [phone] Allergies No known active allergies Medications amantadine HCl (SYMMETREL) 100 mg tablet 02/16/2018 Active lamoTRIgine (LAMICTAL) 100 mg tablet 02/23/2018 Active gabapentin (NEURONTIN) 300 mg capsule 300 mg three times daily. 01/30/2018 Active sertraline (ZOLOFT) 50 mg tablet Take 50 mg by mouth once daily. Takes two tablet by mouth daily equal to 100mg 02/24/2018 Active Family History Medical History Relation Comments CHF Father Hypertension Father pulmonary hypertension Father Relation Status Comments Father Social History Tobacco Use Types Packs/Day Years Used Date Smoking Tobacco: Former Cigarettes Smokeless Tobacco: Former Alcohol Use Standard Drinks/Week Comments Yes 0 (1 standard drink = 0.6 oz pur e alcohol) Area Deprivation Index Answer Date Radu rded National Score (1-100), lower number is lower ri sk Not on file 07/18/2020 State Score (1-10), lower number is lower risk N ot on file 07/18/2020 Data from: https://www.neighborhoodatlas.medicine.[facility].edu/. Last address used for calculation Not on file 07/18/2020 Comments No Sex and Gender Information Value Date Recorded Sex Assigned at Not on file Legal Sex Female 1:27 PM EDT Gender Identity Not on file Sexual Orientation Not on file Last Filed Vital Signs Vital Sign Reading Time Taken Comments Blood Pressure 111/82 03/04/2018 9:14 AM EDT Pulse 70 03/04/2018 9:14 AM EDT Temperature - - Respiratory Rate - - Oxygen Saturation - - Inhaled Oxygen Concentration - - Weight 73.6 kg (162 lb 4.8 oz) 03/04/2018 9:14 A M EDT Height 170.2 cm (5' 7 ) 03/04/2018 9:14 AM EDT Body Mass Index 25.42 03/04/2018 9:14 AM EDT Plan of Treatment Health Maintenance Due Date Last Done Comments Anxiety Screening 1991 Depression Screening 1991 HIV Screening 1991 Hepatitis C Screening 1991 DTaP,Tdap,Td Vaccine (1 - Tdap) 1992 Hepatitis B Vaccine (1 of 3 - 19+ 3-dose series) 07/21 Cervical Cancer Screening [address] M[address] Colonography 2018 Cologuard (FIT-DNA) 2018 Colonoscopy 2018 Colorectal Cancer Screening 2018 Diabetes Screening 2018 Fecal Occult Blood 2018 Lipid Screening 2018 Sigmoidoscopy 2018 Pneumococcal Vaccine: 50+ (1 of 1 - PCV) 2023 Shingrix Vaccine (1 of 2) 2023 Influenza Vaccine (#1) [address] [place] [address] BLUE CARD PPO OOS Care Teams Industrial Sales Engineer Relationship Specialty Start Date End Date Mauricio Scott Brigido [address] [facility] [address] [place] [address] PCP - General Family Medicine 01/27/18 [place] [address] [facility] [address] [place] [address] Referring Neurology 01/27/18
--- OUTSIDE RECORDS SUMMARY | 2025-04-11 11:50 | XMS_ITS | Clinical Summary ---
Author Organization [facility] Address [address] [place] [address] Phone Care Team Providers Care Resistance Brazer Name Role Phone Tuan Vallejo DO Primary Care Provider [phone] Allergies No known active allergies Medications lamoTRIgine (LaMICtal) 100 mg tablet Take 1 tablet (100 mg) by mouth once daily. Active sertraline (Zoloft) 100 mg tablet Take 1 tablet (100 mg) by mouth once daily. Active vitamin B complex (Vitamins B Complex) tablet Take 1 tablet by mouth once daily. Active pregabalin (Lyrica) 25 mg capsule Take 1 capsule (25 mg) by mouth 2 times a day. Active Active Problems Problem Noted Date Diagnosed Date Abnormal ECG 08/03/2023 Atypical chest pain 08/03/2023 Immunizations Immunization Administration Dates Next Due Influenza, seasonal, injectable 05/09/2004 Family History Medical History Relation Name Comments Heart failure Father Hypertension Father cardiovascular disease Father Relation Name Status Comments Father Social History Tobacco Use Types Packs/Day Years Used Date Smoking Tobacco: Former Cigarettes Smokeless Tobacco: Former Tobacco Cessation:Counseling Given: Not Answered Alcohol Use Standard Drinks/Week Comments Yes 0 (1 standard drink = 0.6 oz pur e alcohol) PHQ-2 Answer Date Recorded Patient Health Questionnaire-2 Score 2 05/29/2022 Comments Unknown Sex and Gender Information Value Date Recorded Sex Assigned at Not on file Legal Sex Female 2:21 AM EST Gender Identity Not on file Sexual Orientation Not on file Last Filed Vital Signs Vital Sign Reading Time Taken Comments Blood Pressure 106/70 08/21/2022 9:40 AM EST Pulse 68 08/21/2022 9:40 AM EST Temperature - - Respiratory Rate - - Oxygen Saturation - - Inhaled Oxygen Concentration - - Weight 76.7 kg (169 lb) 08/21/2022 9:40 AM EST Height 167.6 cm (5' 6 ) 08/21/2022 9:40 AM EST Body Mass Index 27.28 08/21/2022 9:40 AM EST Plan of Treatment Health Maintenance Due Date Last Done Comments CT Colonography 1973 Colonoscopy 1973 Colorectal Cancer Screening 1973 FIT-DNA (Cologuard) 1973 FIT 1973 HIV Screening 1973 Lipid Panel 1973 Sigmoidoscopy 1973 Yearly Adult Physical 1973 MMR Vaccines (1 of 1 - Stand sharita series) 1974 Diabetes Screening 1991 Hepatitis C Screening 1991 Hepatitis B Vaccines (1 of 3 - 19+ 3-dose series) 1992 Cervical Cancer Screening 1994 HPV/Cotest 1994 Pap Smear 1994 DTaP/Tdap/Td Vaccines (1 - Tdap) 1995 Mammogram 2013 Pneumococcal Vaccine (1 of 1 - PCV) 2023 Zoster Vaccines (1 of 2) 2023 COVID-19 Vaccine (1 - 2023-2 5 season) 2024 Influenza Vaccine (#1) 2025 05/09/2004 HIB Vaccines Aged Out No longer eligi ble based on patient's age to complete this topic HPV Vaccines Aged Out No longer eligi ble based on patient's age to complete this topic Hepatitis A Vaccines Aged Out No long er eligible based on patient's age to complete this topic IPV Vaccines Aged Out No longer eligi ble based on patient's age to complete this topic Meningococcal Vaccine Aged Out No dahlia saurabh eligible based on patient's age to complete this topic Rotavirus Vaccines Aged Out No longer eligible based on patient's age to complete this topic Insurance [address] [place] [address] [facility] [address] [place] [address] [facility] Care Teams Resistance Brazer Relationship Specialty Start Date End Date Tuan Vallejo DO [address] [place] [address] PCP - General 08/21/22
--- OUTSIDE RECORDS SUMMARY | 2025-04-11 11:50 | XMS_ITS | Encounter Summary ---
Author Organization [facility] Address [address] [place] [address] Phone Care Team Providers Care Dean Of Instruction Name Role Phone Tuan Vallejo DO Primary Care Provider [phone] Encounter Details Date Type Department Care Team (Late st Contact Info) Description 01/20/2024 Orders Only [facility] [address] [place] [id number] Scanning, Generic Provider Social History Tobacco Use Types Packs/Day Years [...] r Schedule OUTSIDE LAB SCAN Lab Ordered: 01/20/2024 documented as of this encounter Visit Diagnoses Not on filedocumented in this encounter Additional Health Concerns Assessment Noted Time PHQ-9 Depression Total Score: 18 022 10:48 AM EDT documented as of this encounter Care Teams Dean Of Instruction Relationship Specialty Start Date End Date Tuan Vallejo DO [address] [place] [address] PCP - General 08/21/22 documented as of this encounter
--- OUTSIDE RECORDS SUMMARY | 2025-04-11 11:50 | XMS_ITS | Clinical Summary ---
Author Organization [facility] tem Address [facility] [id number] [address] [place] [address] Care Team Providers Care Tower Erector Name Role Phone Scott Mauricio MD Primary Care Provider [phone] Allergies Active Allergy Reactions Criticality Noted Date Comments Latex Rash Low 03/19/2015 Oxycodone-Acetaminophen Itching 05/31/2017 Medications sertraline (ZOLOFT) 25 mg tablet Take 25 mg by mouth daily. Active amantadine (SYMMETREL) 100 mg tablet 02/16/2018 Active gabapentin (NEURONTIN) 300 mg capsule 01/30/2018 Active lamoTRIgine (LaMICtal) 100 mg tablet 01/26/2018 Active HYDROcodone-acet aminophen (NORCO) 5-325 mg per tablet Take 1 tablet by mouth every 6 (six) hours as needed. 0 01/28/2018 Active cyclobenzaprine (FLEXERIL) 10 mg tablet Take 10 mg by mouth 3 (three) times a day as needed for muscle spasms. Active Active Problems Problem Noted Date Diagnosed Date S/P bilateral breast implants 05/31/2017 S/P hysterectomy 05/31/2017 Overview (05/31/2017): 2012 - endometriosis, adenomyosis - has both ovaries Family History Medical History Relation Name Comments No Known Problems Brother Asthma Father Heart disease Father Heart failure Father pulmonary hype rtension Hypertension Father Memory loss Father Alzheimer's disease Maternal Grandfather Diabetes Maternal Grandfather Heart failure Maternal Grandfather Breast cancer Maternal Grandmother post-m enopausal with double-mastectomy Cancer Maternal Grandmother Diabetes Maternal Grandmother Liver disease Maternal Grandmother possib le hepatitis from a blood transfusion Fibrocystic breast disease Mother Kidney failure Paternal Grandmother Relation Name Status Comments Brother Alive Father Alive Maternal Grandfather Maternal Grandmother Mother Alive Paternal Grandfather Paternal Grandmother Social History Tobacco Use Types Packs/Day Years Used Date Smoking Tobacco: Passive Smo ke Exposure - Never Smoker Cigarettes Smokeless Tobacco: Never Alcohol Use Standard Drinks/Week Comments Yes 0 (1 standard drink = 0.6 oz pur e alcohol) social; less than monthly Childcare Answer Date Recorded Childcare Unknown 01/16/2019 Employment Answer Date Recorded Employment Unknown 01/16/2019 Purpose - Life Answer Date Recorded Purpose and direction in life Unknown Comments No Sex and Gender Information Value Date Recorded Sex Assigned at Not on file Legal Sex Female 1:07 PM EDT Gender Identity Not on file Sexual Orientation Not on file Last Filed Vital Signs Vital Sign Reading Time Taken Comments Blood Pressure 120/75 02/22/2018 10:44 AM EDT Pulse 80 02/22/2018 10:44 AM EDT Temperature - - Respiratory Rate - - Oxygen Saturation - - Inhaled Oxygen Concentration - - Weight 71.7 kg (158 lb) 02/22/2018 10:44 AM EDT Height 170.2 cm (5' 7 ) 02/22/2018 10:44 AM EDT Body Mass Index 24.75 02/22/2018 10:44 AM EDT Plan of Treatment Health Maintenance Due Date Last Done Comments Depression Screening 1985 Tobacco Screening 1985 Adult BMI Screening 1991 DTaP,Tdap and Td Vaccines (1 - Tdap) 1992 Zoster (Shingles) Vaccine (1 of 2) 2023 Influenza Vaccine 04/09/2025 Medical Devices Not on file Insurance [facility] Care Teams Tower Erector Relationship Specialty [place] [address] [facility] [address] [place] [address] PCP - General 06/09/17
--- NOTE | 2025-04-11 12:11 | CT_ITS ---
The [address] [address] Patient Name: LC BROWNLEE MRN: [id number] date: 1975 Sex: F Assigned Patient Location: ER Current Patient Location: ER Accession/Order Number: [id number] Exam Date: 04/11/2025 12:38 Report Date: 04/11/2025 13:17 At the request of: DELFINO CAMARILLO DO Procedure: CT head/brain wo con CT BRAIN WITHOUT CONTRAST: CLINICAL HISTORY: Headache, blurry vision history of MS. COMPARISON: None TECHNIQUE: Contiguous axial unenhanced images were obtained through the brain. This CT exam was performed using one or more following dose reduction techniques: Automated exposure control, adjustment of the mA and/or kV according to patient size, or use of iterative reconstruction technique. FINDINGS: There is no evidence of midline shift, intra or extra-axial fluid collection, hemorrhage or CT evidence of stroke. Cortical atrophy with focal areas of white matter hypointensity. Posterior fossa appears unremarkable. Visualized intraorbital contents demonstrate no acute findings. Visualized paranasal sinuses are clear. The surrounding soft tissues are normal. CT/CT head/brain wo con IMPRESSION: CORTICAL ATROPHY WITH FOCAL AREAS OF WHITE MATTER HYPOINTENSITY LIKELY RELATED TO THE HISTORY OF MS. NO ACUTE PROCESS IS SEEN. Impression dictated by: Chuck Maldonado Jr., D.O. 04/11/2025 1:17 PM Dictation Location: [place] [address] Electronically authenticated by: [id number] Y Date: 04/11/2025 13:17
[2025-04-11] MEDS: PROCHLORPERAZINE 10 MG/2 ML VIAL IV (12:45)
[2025-04-11] MEDS: diphenhydrAMINE HCL 25 MG in 0.9 % SODIUM CHLORIDE 100 ML 301.5 MG IV (12:45)
[2025-04-11] MEDS: KETOROLAC TROMETHAMINE 30 MG/ML VIAL IVP (12:45)
[2025-04-11 12:56] LABS: Anion Gap 12.1; Blood Urea Nitrogen 15.0 mg/dL (7.0-18.0); Calcium 8.7 mg/dL (8.5-10.1); Carbon Dioxide 26.8 mmol/L (21.0-32.0); Chloride 104 mmol/L (98-107); Estimated GFR (African America >60 (>=60 mL/min/1.73m^2); Estimated GFR (Non-African Ame >60 (>=60 mL/min/1.73m^2); Glucose 100 mg/dL (74-106); Potassium 3.9 mmol/L (3.5-5.1); Sodium 139 mmol/L (136-145)
[2025-04-11 12:57] LABS: Hematocrit 40.1 % (36.0-48.0); Hemoglobin 13.7 g/dL (12.0-16.0); Mean Corpuscular HGB Conc 34.2 g/dL (29.9-35.2); Mean Corpuscular Hemoglobin 30.8 pg (26.7-34.0); Mean Corpuscular Volume 90.1 fL (81.0-99.0); Platelet Count 339 10^3/uL (150-450); Red Blood Count 4.45 10^6/uL (4.20-5.40); White Blood Count 6.6 10^3/uL (4.0-11.0)
[2025-04-11 13:45] VITALS: BP 147/97; PULSE 76; O2SAT 98
--- NOTE | 2025-04-11 13:47 | ED.GENADUL1 ---
HPI HPI - General Adult General Chief complaint: Headache Stated complaint: HEADACHE Time Seen by Provider: 04/11/25 11:58 Source: patient Mode of arrival: walk-in Limitations: no limitations History of Present Illness HPI narrative: Patient is a 49-year-old female presenting to the emergency department for evaluation of a headache. Patient states that her headache started 4 days ago. She states she was watching TV when she started having a left-sided headache. She states it started on the back of her head and now radiates to the left side of her face. It was slow in onset, not sudden. She does not describe it as the worst headache of her life. She states the maximal intensity of the headache was 24 hours later. She has been taking ibuprofen for the pain, however this only minimally helps. She denies any associated photophobia, nausea, or vomiting. She states she feels like she has double vision sometimes, but no current visual disturbances. She denies any numbness/tingling/weakness in the extremities. She denies any gait disturbances. No neck stiffness, fevers, chills, or URI symptoms. Denies chest pain, shortness breath, abdominal pain, or any other concerning systemic symptoms. She does have a history of multiple sclerosis, however she is not on disease modifying drugs or immunosuppressive therapy. She is scheduled to get a routine outpatient MRI next week. Related Data Allergies Allergy/AdvReac Type Severity Reaction Status Date / Time No Known Drug Allergies Allergy Verified 04/11/25 11:41 Opioid HPI Opioid Management Most Recent Opioid Data: Last Pain Scale 9 Today, 12:45 Last MAR Pain Assessment Today, 12:45 Review of Systems ROS Status of ROS 10 or more systems reviewed and unremarkable except as noted in history and below PFSH PFSH Social History Little interest or pleasure in doing things: not at all Feeling down, depressed, or hopeless: not at all Exam Narrative Exam Narrative: CONSTITUTIONAL: Patient is laying in bed in a darkly lit room with a towel over her eyes. She is easily arousable, awake, alert, mentating appropriately. She follows commands and answers questions. She is speaking with a normal voice, no slurred speech. HEAD/NECK: There is reproducible tenderness to palpation of the soft tissues just left of the occiput. Full range of motion of the neck. No nuchal rigidity. SKIN: Was warm and dry. EYES: No conjunctival pallor. No scleral icterus. EARS, NOSE, THROAT: Moist oral mucosa. RESPIRATORY: Clear to auscultation bilaterally, no wheezes, crackles, or stridor, no use of accessory muscles CARDIOVASCULAR: Normal rate and regular rhythm. There is no S3, S4, murmur, rub. GASTROINTESTINAL: Abdomen was soft, non-tender, and non-distended. There is no guarding or rebound tenderness MUSCULOSKELETAL: No peripheral edema. NEUROLOGIC: Patient is alert and oriented to person place and time with normal speech. Memory is normal and thought process is intact. Reflexes: Patellar reflexes are 2/4 bilaterally. No clonus or rigidity of the bilateral upper/lower extremities. Sensation: sensation to light touch is intact bilaterally in upper and lower extremities. Motor: Good muscle tone. Strength is 5/5 bilaterally in the upper and lower extremities. Cerebellar: Finger to nose intact. Patient has a normal gait without ataxia. Cranial Nerves: Pupils are round, reactive to light and accommodation. Extraocular movements are intact without ptosis. No nystagmus. Facial sensation intact bilaterally to light touch in the V1, V2, V3 distribution. Facial muscle strength is normal and equal bilaterally. Hearing is normal bilaterally. Palate and uvula elevate symmetrically. Shoulder shrug strong and equal bilaterally. Tongue protrudes midline and moves symmetrically. Constitutional Vital Signs, click to edit/add: Last Vital Signs Temp 98.4 F 04/11/25 11:42 Pulse 96 H 04/11/25 11:42 Resp 18 04/11/25 11:42 BP 151/80 H 04/11/25 11:42 Pulse Ox 100 04/11/25 11:42 O2 Del Method Room Air 04/11/25 11:42 Course Vital Signs Vital signs: Vital Signs Temperature 98.4 F 04/11/25 11:42 Pulse Rate 96 H 04/11/25 11:42 Respiratory Rate 18 04/11/25 11:42 Blood Pressure 151/80 H 04/11/25 11:42 Pulse Oximetry 100 04/11/25 11:42 Oxygen Delivery Method Room Air 04/11/25 11:42 Temperature 98.4 F 04/11/25 11:42 Pulse Rate 96 H 04/11/25 11:42 Respiratory Rate 18 04/11/25 11:42 Blood Pressure 151/80 H 04/11/25 11:42 Pulse Oximetry 04/11/25 11:42 Oxygen Delivery Method Room Air 04/11/25 11:42 Medical Decision Making [facility] Narrative Medical decision making narrative: Patient is a 49-year-old female, history significant for multiple sclerosis, presenting to the emergency department with a 4-day history of left-sided headache. Vital signs were significant for hypertension, likely related to her acute pain. She is otherwise afebrile and hemodynamically stable. Examination as noted above, however was negative for any focal neurologic deficits or upper motor neuron signs. My clinical impression is that the patient's symptoms are secondary to migraine headache, occipital neuralgia, tension-like headache. I did consider MS flare, however the patient has no neurologic deficits. She has no fevers, infectious-like symptoms, or nuchal rigidity to suggest meningitis. I have low concern for subarachnoid hemorrhage given she has no neck pain/stiffness, history of LOC, onset was not during exertion, the intensity of her headache was not instant/thunderclap in nature, and has full range of motion of the neck. An IV was established and laboratory studies were obtained to rule out underlying electrolyte/metabolic derangement. CT head was ordered. She was given IV Compazine, IV Benadryl, IV ketorolac for symptomatic treatment CT head independently reviewed/interpreted by myself demonstrated no acute intracranial pathology or hemorrhage. Laboratory studies were unremarkable. No significant electrolyte or metabolic derangement. No evidence of acute kidney injury. No anemia, leukocytosis, or thrombocytopenia. On reevaluation, patient states her headache is improved 30% since she arrived to ED. I do believe her presentation is consistent with occipital neuralgia/migraine headache. I do believe the patient is stable for discharge. She is instructed follow-up with a neurologist for further care. She actually has an appointment for an MRI outpatient to monitor her MS. Return precautions were given including any new or concerning neurologic symptoms. Patient understands and agrees to plan. FINAL IMPRESSION: #Acute left-sided migraine headache, improved DISPOSITION: Discharged home CONDITION: Fair Medical Records Medical records reviewed: Yes I reviewed the patient's medical records Lab Data Lab results reviewed: Yes I reviewed the patient's lab results Labs: Lab Results 04/11/25 Range/Units 12:29 WBC 6.6 (4.0-11.0) 10^3/uL RBC 4.45 (4.20-5.40) 10^6/uL Hgb 13.7 (12.0-16.0) g/dL Hct 40.1 (36.0-48.0) % MCV 90.1 (81.0-99.0) fL MCH 30.8 (26.7-34.0) pg MCHC 34.2 (29.9-35.2) g/dL RDW 12.7 (11.0-15.0) % Plt Count 339 (150-450) 10^3/uL MPV 9.9 (9.5-13.5) fL Sodium 139 (136-145) mmol/L Potassium 3.9 (3.5-5.1) mmol/L Chloride 104 (98-107) mmol/L Carbon Dioxide 26.8 (21.0-32.0) mmol/L Anion Gap 12.1 BUN 15.0 (7.0-18.0) mg/dL Creatinine 0.69 (0.55-1.02) mg/dL Est GFR ( Amer) >60 (>=60 mL/min/1.73m^2) Est GFR (Non-Af Amer) >60 (>=60 mL/min/1.73m^2) BUN/Creatinine Ratio 21.7 Glucose 100 (74-106) mg/dL Calcium 8.7 (8.5-10.1) mg/dL Imaging Data CT scan - head: Attestation: I personally reviewed and interpreted this imaging study as follows: Radiologist's impression: ITS Impressions Head CT 04/11/25 12:11 IMPRESSION: CORTICAL ATROPHY WITH FOCAL AREAS OF WHITE MATTER HYPOINTENSITY LIKELY RELATED TO THE HISTORY OF MS. NO ACUTE PROCESS IS SEEN. Impression dictated by: Chuck Maldonado Jr., D.O. 04/11/2025 1:17 PM Dictation Location: [place] [address] Electronically authenticated by: [id number] Y Date: 04/11/2025 13:17 Discharge Plan Discharge Chief Complaint: Headache Clinical Impression: Migraine Qualifiers: Migraine type: unspecified Patient Disposition: Home, Self-Care Time of Disposition Decision: 13:37 Condition: Fair Mode of Transportation: Private Vehicle Print Language: Uzbek Instructions: Migraine Headache (ED) Referrals: CHEO CHAVIRA [Primary Care Provider, Unknown] - 1 week
[2025-04-11 14:17] VITALS: O2SAT 98
[2025-04-11 14:34] VITALS: BP 112/57; PULSE 72; O2SAT 98
== END 2025-04-11 14:42 | disposition home or self-care (01) ==
PROVIDERS: Emergency Provider Student in an Organized Health Care Education/Training Program
DX: G43.909 Migraine, unspecified, not intractable, without status migrainosus (principal); G35 Multiple sclerosis
CPT/HCPCS: 36415; 70450; 80048; 85027; 96365; 96375; 99284; J0780; J1200; J1885